=== PATIENT | female | born 1970 | race Caucasian/White ===

== ENCOUNTER → 2017-12-20 | Outpatient (CLI) | payer OTHER ==
[2017-12-19 14:27] VITALS: BMI 33.5
[2017-12-20 14:00] VITALS: BP 156/88; PULSE 61; RESP 16
--- NOTE | 2017-12-20 15:38 | P.HPIM ---
History of Present Illness H&P Date: 12/20/17 Chief Complaint: neck and low back pain This is a 47-year-old patient referred by Sarahi Montelongo NP for chronic pain in neck and low back pain. Patient has been taking medications from primary care physician including tramadol medications with some relief, and patient also takes Xanax for anxiety. Patient denies adverse drug effects from medications. Patient also denies new-onset weakness, bowel/bladder incontinence , or any other signs or symptoms of cauda equina syndrome. There are no signs of acute intoxication, and no indications of medication diversion or overuse. Patient notes that pain worsens significantly with lifting the shoulders and turning her neck and also with bending and twisting and improves with and medication. Patient has used several types of medications for pain, including NSAIDS, OPIOIDS ([place], tramadol), and BENZODIAZEPINES. Patient HAS NOT had surgery. Patient HAS had injections previously with Dr. Brody, last in [id number]. Patient HAS NOT had physical therapy recently. In addition to above, 13-point review of systems is also negative for chest pain , shortness of breath, changes in vision, changes in hearing, new onset weakness , abdominal pain, diarrhea, extreme fatigue, malaise, fever, skin changes, homicidal or suicidal ideation, or bowel or bladder incontinence. Vital Signs: Reviewed in EMR Gen: WDWN, AAOx3, NAD HEENT: NCAT, EOMI, hearing grossly normal Pulm: resp unlabored Abd: soft, NT, ND Neck: supple, trachea midline ROM in flexion cervical spine: reduced ROM in extension cervical spine: reduced Cervical paravertebral tenderness: + Cervical Facet tenderness: + bilateral, R > L Spurling's: neg ROM in flexion lumbar spine: reduced ROM in extension lumbar spine: reduced Lumbar paravertebral tenderness: + Facet loading: + L > R SI joint tenderness: neg Leonard's test: neg Straight leg raise: + R side Past Medical History Additional Past Medical History / Comment(s): STATES HEAD,NECK,ARMS,BACK, BUTTOCKS AND LEG PAIN., STATES DIFFICULT TO WALK DISTANCE. History of Any Multi-Drug Resistant Organisms: None Reported Past Surgical History: Section Additional Past Surgical History / Comment(s): TUBES IN EARS (CHILD), X2 Past Anesthesia/Blood Transfusion Reactions: No Reported Reaction Smoking Status: Current every day smoker - Past Family History Mother Family Medical History: Cancer Medications and Allergies Home Medications Medication Instructions Recorded Confirmed Type ALPRAZolam [Xanax] 0.5 mg PO BID PRN 12/19/17 12/19/17 History ARIPiprazole [Abilify] 5 mg PO DAILY 12/19/17 12/19/17 History Acetaminophen [Tylenol Extra 1,000 mg PO BID PRN 12/19/17 12/19/17 History Strength] Cider Vinegar [Apple Cider Vinegar] 300 mg PO DAILY 12/19/17 12/19/17 History Diclofenac Sodium [Voltaren-Xr] 100 mg PO DAILY 12/19/17 12/19/17 History Ergocalciferol [Vitamin D2] 50,000 unit PO TUTH 12/19/17 12/19/17 History Gabapentin [Neurontin] 300 mg PO TID 12/19/17 12/19/17 History Sertraline [Zoloft] 100 mg PO BID 12/19/17 12/19/17 History Turmeric Root Extract [Turmeric] 500 mg PO DAILY 12/19/17 12/19/17 History lamoTRIgine [LaMICtal] 100 mg PO HS 12/19/17 12/19/17 History lamoTRIgine [LaMICtal] 200 mg PO QAM 12/19/17 12/19/17 History tiZANidine HCL [Zanaflex] 4 mg PO BID 12/19/17 12/19/17 History Allergies Allergy/AdvReac Type Severity Reaction Status Date / Time No Known Allergies Allergy Verified 12/19/17 14:04 Physical Exam Vitals: Vital Signs Pulse Resp BP Pulse Ox 12/20/17 13:41 61 16 156/88 97 Results Comments: MRI lumbar spine without contrast from 04/06/2016 is negative except for minimal degenerative disc disease with facet hypertrophy identified at the L4 through S1 levels. Assessment and Plan (1) Cervical spondylosis without myelopathy Current Visit: Yes Status: Chronic Code(s): M47.812 - SPONDYLOSIS W/O MYELOPATHY OR RADICULOPATHY, CERVICAL REGION SNOMED Code(s): 514389594 (2) Lumbar spondylosis Current Visit: Yes Status: Chronic Code(s): M47.816 - SPONDYLOSIS W/O MYELOPATHY OR RADICULOPATHY, LUMBAR REGION SNOMED Code(s): 044785132 (3) Chronic pain syndrome Current Visit: Yes Status: Chronic Code(s): G89.4 - CHRONIC PAIN SYNDROME SNOMED Code(s): 898849015 Plan: 1. Explanation: Opioid and psychological risk scores were reviewed. Diagnoses , prognoses, and multiple treatment options including but not limited to physical therapy, interventional therapies, adjuvant medical therapies, narcotic medication therapies, and surgery were discussed with the patient and all questions were answered to the patient's satisfaction. 2. Opioid agreement: no opioids prescribed today 3. Counseling: The patient was counseled extensively on SMOKING CESSATION ( told to reduce to 10 cigarettes/day from 15), BODY MASS INDEX, EXERCISE. Specifically, the patient was instructed regarding the importance of smoking cessation, weight control, and exercise in the context of both chronic pain and overall health. 4. Procedures: none for now 5. Consultations: none 6. Investigations: MRI lumbar spine repeat 7. Medications: none prescribed 8. Disposition: f/u in 4 weeks for re-eval with procedure notes from Dr. Brody and MRI results Time with Patient: Greater than 30
== END | disposition home or self-care (01) ==
LOC: PNWHC3 13:34
PROVIDERS: ATTEND Anesthesiology
DX: G89.4 Chronic pain syndrome (principal); M47.812 Spondylosis without myelopathy or radiculopathy, cervical region; M47.816 Spondylosis without myelopathy or radiculopathy, lumbar region; F17.200 Nicotine dependence, unspecified, uncomplicated; Z79.899 Other long term (current) drug therapy
CPT/HCPCS: 99201

== ENCOUNTER → 2018-02-19 | Outpatient (CLI) | payer OTHER ==
--- NOTE | 2018-02-19 16:23 | MR ---
EXAMINATION TYPE: MR lumbar spine wo con DATE OF EXAM: 02/19/2018 COMPARISON: NONE HISTORY: Lumbar spondylosis without myelopathy, pain CONTRAST: 0 mL intravenous Gadavist. TECHNIQUE: Multiplanar, multisequence images of the lumbar spine were acquired. FINDINGS: L5-S1: Very minimal disc bulge is present without thecal sac contact. No spinal canal stenosis is pre sent. The disc hydration is normal. Disc height is preserved. L4-L5: No significant disc bulge or disc herniation. Some subtle asymmetric disc bulging into the rig ht infrahilar foramen may be present. No stenosis or contact is evident. Disc desiccation is present . Disc height is preserved. Very subtle linear signal on the T2-weighted sequences within the mid pos terior disc space could be a very small annular tear.. L3-L4: No significant disc bulge or disc herniation. No spinal canal stenosis. There is some minima l disc bulging which extends beyond the endplate of L3-L4 into the right foramen at L3-4. No nerve ro ot contact or significant foraminal narrowing is present. L2-L3: No significant disc bulge or disc herniation. No spinal canal stenosis. No foraminal stenosi s. L1-L2: No significant disc bulge or disc herniation. No spinal canal stenosis. No foraminal stenosi s. T12-L1: No significant disc bulge or disc herniation. No spinal canal stenosis. No foraminal stenos is. IMPRESSIONS: 1. Suggestion of a very subtle annular tear at L4-5-1 questionable clinical significance. 2. Intimal disc bulging without thecal sac contact L5-S1. 3. Some minimal far right lateral subligamentous disc herniation may be present into the right L3-L4 foramen.
== END | disposition home or self-care (01) ==
LOC: RADMRIMAIN 06:55
PROVIDERS: ATTEND Anesthesiology
DX: M51.26 Other intervertebral disc displacement, lumbar region (principal)
CPT/HCPCS: 72148

== ENCOUNTER → 2018-04-05 | Outpatient (CLI) | payer OTHER ==
[2018-04-05 15:40] VITALS: BP 133/84; PULSE 74; RESP 18; TEMP 97.8
--- NOTE | 2018-04-05 15:49 | P.PN ---
Subjective Progress Note Date: 04/05/18 This is a 47-year-old female with chronic history of lower back pain mostly on the right side of her lower back down to the right buttock. The patient denies any bowel or bladder dysfunction or any weakness in the lower extremities. She had a recent MRI on the lumbar spine which showed very small disc herniation at the L2-3 level and recently small disc tear at the L4 5 level. Objective - Vital Signs Vital signs: Vital Signs Temp 97.8 F 04/05/18 15:36 Pulse 74 04/05/18 15:36 Resp 18 04/05/18 15:36 BP 133/84 04/05/18 15:36 Pulse Ox Intake & Output 04/04/18 04/05/18 04/05/18 18:59 06:59 18:59 Weight 102.058 kg - EENT Eyes: Present: PERRLA - Respiratory Respiratory: bilateral: CTA - Cardiovascular Rhythm: regular Heart sounds: normal: S1, S2 - Neurologic Neurologic: Present: CNII-XII intact - Psychiatric Psychiatric: Present: A&O x's 3, appropriate affect, intact judgment & insight - Additional findings Additional findings: Neuro exam of the lower extremities showed normal muscle strength, and normal and symmetrical deep tendon reflexes. Straight leg raising test negative bilaterally Leonard's test mildly positive on the right side and the patient has tenderness around the right sacroiliac joint. Internal and external rotation of the hip joints did not elicit any pain. Assessment and Plan Plan: This is a 47-year-old morbidly obese female with what seems to be right sacral joint dysfunction and sacroiliitis. The patient may benefit from getting right sacroiliac joint steroid injection under fluoroscopic guidance. Her seizure was explained to the patient and she was agreeable to it.
== END | disposition home or self-care (01) ==
LOC: PNWHC3 14:15
PROVIDERS: ATTEND Anesthesiology
DX: G89.29 Other chronic pain (principal); M51.26 Other intervertebral disc displacement, lumbar region; S34.104D Unspecified injury to L4 level of lumbar spinal cord, subsequent encounter; E66.01 Morbid (severe) obesity due to excess calories; G40.909 Epilepsy, unspecified, not intractable, without status epilepticus
CPT/HCPCS: 99211

== ENCOUNTER → 2018-05-21 | Day surgery (SDC) | payer OTHER ==
[~2018-05-21] MED LIST: LACTATED RINGERS 1,000 ML IV SCH
[2018-05-21 10:55] VITALS: TEMP 98.6
--- NOTE | 2018-05-21 12:10 | P.PCN ---
Date of Procedure: 05/21/18 Surgeon: Dell Chung Pathology: none sent Condition: stable Disposition: PACU Description of Procedure: Preoperative diagnoses= sacroiliac joint dysfunction and sacroiliitis on the right side Postoperative diagnoses= same as preoperative diagnosis. Procedure= sacroiliac joint steroid injection under fluoroscopic guidance. Anesthesia= conscious sedation with Versed mg and fentanyl micrograms and local infiltration with lidocaine 1% 4 ml Estimated blood loss=minimal. Procedure indication= the patient had a history of severe chronic low back pain , diagnosed with sacroiliitis and lumbar sacral facet arthropathy unresponsive to conservative treatment. Procedure description= the patient was seen and identified in the preoperative holding area, risks and benefits and alternative of the procedure and possible complications discussed with the patient, patient signed the consent. an IV was started, and vital signs were monitored and were stable throughout the procedure , patient was placed in the prone position or table and the lumbosacral area was prepped and draped with a sterile fashion, vital signs were closely monitored during the procedure.The right sacroiliac joint was identified on the AP view of fluoroscopy then the C-arm was tilted to the left oblique position to superimpose the anterior and posterior joint lines on each other and to have a unified joint line with the target point at the inferior one third of this line. I used 22-gauge 3-1/2 inch Quincke spinal needle for this procedure and after getting into the sacroiliac joint I injected 40 mg of Kenalog +2 MLS of Ropivacaine 0.5%. Patient tolerated the procedure well without any complication, The patient returned to supine position after the back was cleaned and a Band- Aid applied, the patient transported to recovery room in stable condition and he was monitored for 30 minutes before he was discharged home and then patient was reexamined before going home and patient was discharged in stable condition and patient will follow up with the pain clinic in a few weeks
[2018-05-21 12:22] VITALS: RESP 16
[2018-05-21 12:37] VITALS: BP 135/85; PULSE 77
--- NOTE | 2018-05-21 13:24 | FL ---
Fluoroscopy History: Rt Si Inj 4sec fluoro time,1 image scanned
== END | disposition home or self-care (01) ==
LOC: ORPAIN 09:44
PROVIDERS: ATTEND Anesthesiology
DX: M46.1 Sacroiliitis, not elsewhere classified (principal); G89.29 Other chronic pain; M47.816 Spondylosis without myelopathy or radiculopathy, lumbar region
CPT/HCPCS: 81025; J2250; J3301; G0260; 27096

== ENCOUNTER 2018-10-29 12:13 | Emergency (ER) | payer OTHER ==
[2018-10-29 12:21] VITALS: TEMP 98.4
[2018-10-29] MEDS ORDERED: SODIUM CHLORIDE 0.9% 1,000 ML IV STA (14:14)
--- NOTE | 2018-10-29 14:38 | ED ---
Seizure HPI - General Chief Complaint: ENT Stated Complaint: bloody nose Time Seen by Provider: 10/29/18 13:00 Source: patient, RN notes reviewed, old records reviewed Mode of arrival: ambulatory Limitations: no limitations - History of Present Illness Initial Comments: This is a 48-year-old female the ER for evaluation. Patient's multiple medical complaints today. Patient complaints of headache times a week, occasional bloody nose that has been difficulty.. Patient also complains of per family seizure versus syncopal event today. Patient was having headache headache he was unresponsive and had some shaking movement per family. She did appear to come back to baseline after this event happened. She does have persistent headache now she had a nosebleed earlier in the day that is resolved. She's had multiple nosebleeds throughout the week with congestion. No fevers. No recent trauma. Patient has no prior history of seizure, no prior history of syncope. Patient denies drugs or alcohol she does take multiple drugs for psychiatric illness MD Complaint: possible seizure, loss of consciousness (Unresponsiveness), shaking -: hour(s) Description of Episode: loss of consciousness (Unresponsiveness) -: second(s) Witnessed: yes - by bystander Trauma: No Seizure History: none (None), other Place: home Possible Precipitating Event: none Associated Symptoms: weakness, other (Headache) Treatments Prior to Arrival: none - Related Data Home Medications Medication Instructions Recorded Confirmed ARIPiprazole [Abilify] 5 mg PO DAILY 12/19/17 10/29/18 Gabapentin [Neurontin] 300 mg PO TID 12/19/17 10/29/18 Sertraline [Zoloft] 200 mg PO DAILY 12/19/17 10/29/18 lamoTRIgine [LaMICtal] 200 mg PO BID 12/19/17 10/29/18 Previous Rx's Medication Instructions Recorded Amoxic-Pot Clav 875-125Mg 1 tab PO Q12HR #20 tablet 10/29/18 [Augmentin 875-125] Allergies Allergy/AdvReac Type Severity Reaction Status Date / Time No Known Allergies Allergy Verified 10/29/18 13:18 Review of Systems ROS Statement: Those systems with pertinent positive or pertinent negative responses have been documented in the HPI. ROS Other: All systems not noted in ROS Statement are negative. Past Medical History Past Medical History: Hypertension Additional Past Medical History / Comment(s): STATES HEAD,NECK,ARMS,BACK, BUTTOCKS AND LEG PAIN., STATES DIFFICULT TO WALK DISTANCE. History of Any Multi-Drug Resistant Organisms: None Reported Past Surgical History: Section Additional Past Surgical History / Comment(s): TUBES IN EARS (CHILD), X2 Past Anesthesia/Blood Transfusion Reactions: No Reported Reaction Past Psychological History: Anxiety, Bipolar, Depression Smoking Status: Current every day smoker Past Alcohol Use History: Rare Past Drug Use History: None Reported - Past Family History Mother Family Medical History: Cancer General Exam Limitations: no limitations General appearance: alert, in no apparent distress Head exam: Present: atraumatic, normocephalic, normal inspection Eye exam: Present: normal appearance, PERRL, EOMI. Absent: scleral icterus, conjunctival injection, periorbital swelling ENT exam: Present: normal exam, mucous membranes moist Neck exam: Present: normal inspection. Absent: tenderness, meningismus, lymphadenopathy Respiratory exam: Present: normal lung sounds bilaterally. Absent: respiratory distress, wheezes, rales, rhonchi, stridor Cardiovascular Exam: Present: regular rate, normal rhythm, normal heart sounds. Absent: systolic murmur, diastolic murmur, rubs, gallop, clicks GI/Abdominal exam: Present: soft, normal bowel sounds. Absent: distended, tenderness, guarding, rebound, rigid Extremities exam: Present: normal inspection, full ROM, normal capillary refill. Absent: tenderness, pedal edema, joint swelling, calf tenderness Back exam: Present: normal inspection Neurological exam: Present: alert, oriented X3, CN II-XII intact Psychiatric exam: Present: normal affect, normal mood Skin exam: Present: warm, dry, intact, normal color. Absent: rash Course Vital Signs 10/29/18 10/29/18 10/29/18 12:15 15:00 16:00 Temperature 98.4 F Pulse Rate 79 68 Respiratory 18 16 Rate Blood Pressure 138/81 129/85 134/90 O2 Sat by Pulse 96 95 Oximetry 10/29/18 16:30 Temperature Pulse Rate 72 Respiratory 14 Rate Blood Pressure 142/79 O2 Sat by Pulse 97 Oximetry - Reevaluation(s) Reevaluation #1: Medical record reviewed Patient is without seizure activity or syncopal event here in the emergency room Family explained at length results of studies, outcomes, questions answered, encourage need for neurological follow-up. Patient does not want to be transferred, both her and daughter do see Dr. Brody and she will make follow-up appointment Medical Decision Making - Medical Decision Making 48 female the ER with seizure versus syncopal event as well as bloody nose. Epistaxis is resolved here in the emergency room. Patient is CT brain which is negative, labwork is otherwise normal and she can be discharged home - Lab Data Result diagrams: 10/29/18 14:30 10/29/18 14:30 Lab Results 10/29/18 10/29/18 10/29/18 Range/Units 14:30 14:30 14:30 WBC 8.4 (3.8-10.6) k/uL RBC 4.56 (3.80-5.40) m/uL Hgb 12.9 (11.4-16.0) gm/dL Hct 39.9 (34.0-46.0) % MCV 87.6 (80.0-100.0) fL MCH 28.3 (25.0-35.0) pg MCHC 32.3 (31.0-37.0) g/dL RDW 14.4 (11.5-15.5) % Plt Count 407 (150-450) k/uL Neutrophils % 72 % Lymphocytes % 18 % Monocytes % 7 % Eosinophils % 1 % Basophils % 1 % Neutrophils # 6.1 (1.3-7.7) k/uL Lymphocytes # 1.5 (1.0-4.8) k/uL Monocytes # 0.6 (0-1.0) k/uL Eosinophils # 0.1 (0-0.7) k/uL Basophils # 0.0 (0-0.2) k/uL PT (9.0-12.0) sec INR (<1.2) Sodium 141 (137-145) mmol/L Potassium 4.3 (3.5-5.1) mmol/L Chloride 105 (98-107) mmol/L Carbon Dioxide 27 (22-30) mmol/L Anion Gap 9 mmol/L BUN 8 (7-17) mg/dL Creatinine 0.63 (0.52-1.04) mg/dL Est GFR (CKD-EPI)AfAm >90 (>60 ml/min/1.73 sqM) Est GFR (CKD-EPI)NonAf >90 (>60 ml/min/1.73 sqM) Glucose 97 (74-99) mg/dL Calcium 9.3 (8.4-10.2) mg/dL Phosphorus 3.7 (2.5-4.5) mg/dL Magnesium 2.3 (1.6-2.3) mg/dL Total Bilirubin 0.3 (0.2-1.3) mg/dL AST 21 (14-36) U/L ALT 30 (9-52) U/L Alkaline Phosphatase 99 (38-126) U/L Total Protein 7.6 (6.3-8.2) g/dL Albumin 4.4 (3.5-5.0) g/dL Lipase 62 (23-300) U/L Urine Color Colorless Urine Appearance Clear (Clear) Urine pH 6.5 (5.0-8.0) Ur Specific [place] 1.001 (1.001-1.035) Urine Protein Negative (Negative) Urine Glucose (UA) Negative (Negative) Urine Ketones Negative (Negative) Urine Blood Trace H (Negative) Urine Nitrite Negative (Negative) Urine Bilirubin Negative (Negative) Urine Urobilinogen <2.0 (<2.0) mg/dL Ur Leukocyte Esterase Negative (Negative) Urine RBC <1 (0-5) /hpf Urine WBC <1 (0-5) /hpf Ur Squamous Epith Cells 1 (0-4) /hpf Salicylates <1.0 mg/dL Urine Opiates Screen Not Detected (NotDetected) Ur Oxycodone Screen Not Detected (NotDetected) Urine Methadone Screen Not Detected (NotDetected) Ur Propoxyphene Screen Not Detected (NotDetected) Acetaminophen <10.0 ug/mL Ur Barbiturates Screen Detected H (NotDetected) U Tricyclic Antidepress Not Detected (NotDetected) Ur Phencyclidine Scrn Not Detected (NotDetected) Ur Amphetamines Screen Not Detected (NotDetected) U Methamphetamines Scrn Not Detected (NotDetected) U Benzodiazepines Scrn Not Detected (NotDetected) Urine Cocaine Screen Not Detected (NotDetected) U Marijuana (THC) Screen Detected H (NotDetected) Serum Alcohol <10 mg/dL 10/29/18 Range/Units 14:30 WBC (3.8-10.6) k/uL RBC (3.80-5.40) m/uL Hgb (11.4-16.0) gm/dL Hct (34.0-46.0) % MCV (80.0-100.0) fL MCH (25.0-35.0) pg MCHC (31.0-37.0) g/dL RDW (11.5-15.5) % Plt Count (150-450) k/uL Neutrophils % % Lymphocytes % % Monocytes % % Eosinophils % % Basophils % % Neutrophils # (1.3-7.7) k/uL Lymphocytes # (1.0-4.8) k/uL Monocytes # (0-1.0) k/uL Eosinophils # (0-0.7) k/uL Basophils # (0-0.2) k/uL PT 9.7 (9.0-12.0) sec INR 0.9 (<1.2) Sodium (137-145) mmol/L Potassium (3.5-5.1) mmol/L Chloride (98-107) mmol/L Carbon Dioxide (22-30) mmol/L Anion Gap mmol/L BUN (7-17) mg/dL Creatinine (0.52-1.04) mg/dL Est GFR (CKD-EPI)AfAm (>60 ml/min/1.73 sqM) Est GFR (CKD-EPI)NonAf (>60 ml/min/1.73 sqM) Glucose (74-99) mg/dL Calcium (8.4-10.2) mg/dL Phosphorus (2.5-4.5) mg/dL Magnesium (1.6-2.3) mg/dL Total Bilirubin (0.2-1.3) mg/dL AST (14-36) U/L ALT (9-52) U/L Alkaline Phosphatase (38-126) U/L Total Protein (6.3-8.2) g/dL Albumin (3.5-5.0) g/dL Lipase (23-300) U/L Urine Color Urine Appearance (Clear) Urine pH (5.0-8.0) Ur Specific [place] (1.001-1.035) Urine Protein (Negative) Urine Glucose (UA) (Negative) Urine Ketones (Negative) Urine Blood (Negative) Urine Nitrite (Negative) Urine Bilirubin (Negative) Urine Urobilinogen (<2.0) mg/dL Ur Leukocyte Esterase (Negative) Urine RBC (0-5) /hpf Urine WBC (0-5) /hpf Ur Squamous Epith Cells (0-4) /hpf Salicylates mg/dL Urine Opiates Screen (NotDetected) Ur Oxycodone Screen (NotDetected) Urine Methadone Screen (NotDetected) Ur Propoxyphene Screen (NotDetected) Acetaminophen ug/mL Ur Barbiturates Screen (NotDetected) U Tricyclic Antidepress (NotDetected) Ur Phencyclidine Scrn (NotDetected) Ur Amphetamines Screen (NotDetected) U Methamphetamines Scrn (NotDetected) U Benzodiazepines Scrn (NotDetected) Urine Cocaine Screen (NotDetected) U Marijuana (THC) Screen (NotDetected) Serum Alcohol mg/dL - EKG Data -: EKG Interpreted by Me (EKG shows normal sinus rhythm rate of 64, MT 202, QRS 96, QTc 457) - Radiology Data Radiology results: report reviewed (CT brain CTA is negative for acute disease) , image reviewed Disposition Clinical Impression: Epistaxis, Seizure, Syncope, Sinusitis Narrative: Syncope V Seizure Disposition: HOME SELF-CARE Condition: Good Instructions (If sedation given, give patient instructions): Sinusitis (ED), Nosebleed (ED) Prescriptions: Amoxic-Pot Clav 875-125Mg [Augmentin 875-125] 1 tab PO Q12HR #20 tablet Is patient prescribed a controlled substance at d/c from ED?: No Referrals: Michael Russell MD [Primary Care Provider] - 1-2 days Bharti Brody MD [Medical Doctor] - 1-2 days
[2018-10-29 14:53] LABS: Basophils % (A) 1 %; Eosinophils # (A) 0.1 k/uL (0-0.7); Eosinophils % (A) 1 %; HCT 39.9 % (34.0-46.0); HGB 12.9 gm/dL (11.4-16.0); Lymphocytes # (A) 1.5 k/uL (1.0-4.8); Lymphocytes % (A) 18 %; MCH 28.3 pg (25.0-35.0); MCHC 32.3 g/dL (31.0-37.0); MCV 87.6 fL (80.0-100.0); Mean Platelet Volume 6.3; Monocytes # (A) 0.6 k/uL (0-1.0); Monocytes % (A) 7 %; Neutrophils # (A) 6.1 k/uL (1.3-7.7); Neutrophils % (A) 72 %; Platelet Count 407 k/uL (150-450); RBC 4.56 m/uL (3.80-5.40); RDW 14.4 % (11.5-15.5); WBC 8.4 k/uL (3.8-10.6)
[2018-10-29 14:55] LABS: Appearance,Urine Clear (Clear); Bilirubin,Urine Negative (Negative); Blood,Urine Trace (Negative); Color,Urine Colorless; Glucose,Urine (UA) Negative (Negative); Ketones,Urine Negative (Negative); Leukocyte Esterase,Urine Negative (Negative); Nitrite,Urine Negative (Negative); PH, Urine 6.5 (5.0-8.0); Protein,Urine Negative (Negative); RBC,Urine <1 /hpf (0-5); Specific Gravity,Urine 1.001 (1.001-1.035); Squamous Epithelial Cell,Urine 1 /hpf (0-4); Urobilinogen,Urine <2.0 mg/dL (<2.0); WBC,Urine <1 /hpf (0-5)
[2018-10-29 15:01] LABS: ALT 30 U/L (9-52); AST 21 U/L (14-36); Acetaminophen <10.0 ug/mL; Albumin 4.4 g/dL (3.5-5.0); Alcohol <10 mg/dL; Alkaline Phosphatase 99 U/L (38-126); Anion Gap 9 mmol/L; Blood Urea Nitrogen 8 mg/dL (7-17); Calcium 9.3 mg/dL (8.4-10.2); Carbon Dioxide 27 mmol/L (22-30); Chloride 105 mmol/L (98-107); Glucose 97 mg/dL (74-99); Lipase 62 U/L (23-300); Magnesium 2.3 mg/dL (1.6-2.3); Phosphorus 3.7 mg/dL (2.5-4.5); Potassium 4.3 mmol/L (3.5-5.1); Salicylate <1.0 mg/dL; Sodium 141 mmol/L (137-145); Total Bilirubin 0.3 mg/dL (0.2-1.3); Total Protein 7.6 g/dL (6.3-8.2)
[2018-10-29 15:02] LABS: INR 0.9 (<1.2); Prothrombin Time 9.7 sec (9.0-12.0)
[2018-10-29 15:04] LABS: Amphetamine Screen,Urine Not Detected (NotDetected); Barbiturate Screen,Urine Detected (NotDetected); Benzodiazepines Screen,Urine Not Detected (NotDetected); Cocaine Screen,Urine Not Detected (NotDetected); Methadone Screen, Urine Not Detected (NotDetected); Opiate Screen,Urine Not Detected (NotDetected); Oxycodone Screen, Urine Not Detected (NotDetected); Phencyclidine Screen,Urine Not Detected (NotDetected); Tricyclic Antidepressant,Urine Not Detected (NotDetected); Urn Cannabinoid Scrn Detected (NotDetected)
--- NOTE | 2018-10-29 15:14 | CT ---
EXAMINATION TYPE: CT brain wo con DATE OF EXAM: 10/29/2018 COMPARISON: None HISTORY: Seizure and bloody nose. CT DLP: 1171 mGycm. Automated Exposure Control for Dose Reduction was Utilized. TECHNIQUE: CT scan of the head is performed without contrast. FINDINGS: There is no acute intracranial hemorrhage, mass effect, or midline shift identified. The ventricles and sulci are within normal limits in size. The globes are intact bilaterally. Mild muco miguel angel thickening involving ethmoid sinuses is seen. Remainder paranasal sinuses are clear. IMPRESSION: No acute intracranial hemorrhage or midline shift is seen.
--- NOTE | 2018-10-29 15:30 | CT ---
EXAMINATION TYPE: CT angio COW [place] DATE OF EXAM: 10/29/2018 COMPARISON: None HISTORY: Seizure and bloody nose. CT DLP: 622.6 mGycm Automated Exposure Control for Dose Reduction was Utilized. TECHNIQUE: CTA scan of the head is performed with IV contrast.,patient injected with 100ml mL of Isov ue 370. Three-D reconstructed images are created on MRI scanner and reviewed. FINDINGS: Codominant vertebral basilar system is present. There is no significant focal stenosis or a neurysmal change in the posterior circulation. There is hypoplastic right P1 segment with filling of right P2 segment due to patent right-sided posterior communicating artery. There is hypoplastic left sided posterior communicating artery identified. Images of the anterior circulation show small caliber but patent anterior communicating artery. There is no significant focal stenosis or aneurysmal change seen. IMPRESSION: No aneurysmal change at the level of the [place].
[2018-10-29 16:43] VITALS: BP 142/79; PULSE 72; RESP 14
== END 2018-10-29 17:01 | disposition home or self-care (01) ==
LOC: EC 12:13
DX: R56.9 Unspecified convulsions (principal); R04.0 Epistaxis; R55 Syncope and collapse; J32.9 Chronic sinusitis, unspecified; F31.9 Bipolar disorder, unspecified; F41.9 Anxiety disorder, unspecified; F17.200 Nicotine dependence, unspecified, uncomplicated; Z79.899 Other long term (current) drug therapy
CPT/HCPCS: 36415; 93005; 80053; 80175; 83690; 83735; 84100; 85025; 85610; 81001; 80306; 83520 ×2; 70496; 70450; 99284; 96360; G0480; Q9967; 80320